=== PATIENT | male | born 1975 | race Caucasian/White ===

== ENCOUNTER 2024-10-09 16:15 | Emergency (ER) | payer OTHER, MEDICAID ==
[~2024-10-09] VITALS: Ht 180.3 cm; Wt 79.4 kg
[2024-10-09 16:35] VITALS: BP 140/78; TEMP 98.1
[2024-10-09] MEDS ORDERED: ACETAMINOPHEN ES 500 MG TABLET ONE (17:19)
[2024-10-09] MEDS: ACETAMINOPHEN ES 500 MG TABLET PO ONE (17:32)
[2024-10-09 19:00] VITALS: O2SAT 99
== END 2024-10-09 19:01 | disposition home or self-care (01) ==
LOC: ER 16:26
DX: S09.8XXA Other specified injuries of head, initial encounter (principal); M79.642 Pain in left hand; M79.672 Pain in left foot; I10 Essential (primary) hypertension; Z87.39 Personal history of other diseases of the musculoskeletal system and connective tissue; Y04.0XXA Assault by unarmed brawl or fight, initial encounter; Y93.89 Activity, other specified; Y92.89 Other specified places as the place of occurrence of the external cause; Y99.8 Other external cause status
CPT/HCPCS: 70450-TC; 72125-TC; 72131-TC; 73130-TC; 73610-TC; 73630-TC